=== PATIENT | female | born 2000 | race Two or more races ===

== ENCOUNTER 2022-01-06 12:39 | Emergency (ER) | payer OTHER ==
[~2022-01-06] VITALS: Ht 160 cm; Wt 45.5 kg
[2022-01-06] MEDS ORDERED: GABAPENTIN 300 MG CAPSULE PO ONE (15:00)
[2022-01-06] MEDS ORDERED: METHOCARBAMOL 500 MG TABLET PO ONE (15:00)
[2022-01-06] MEDS ORDERED: KETOROLAC TROMETHAMINE 30 MG/ML VIAL IM ONE (15:00)
[2022-01-06 15:58] VITALS: BP 107/61
[2022-01-06] MEDS ORDERED: NAPR-1025 PO (16:02)
[2022-01-06] MEDS ORDERED: GABA-1181 PO (16:02)
== END 2022-01-06 16:13 | disposition home or self-care (01) ==
LOC: EMS 12:39
DX: S39.012A Strain of muscle, fascia and tendon of lower back, initial encounter (principal); X58.XXXA Exposure to other specified factors, initial encounter; Y93.89 Activity, other specified; Y92.89 Other specified places as the place of occurrence of the external cause; Y99.8 Other external cause status
CPT/HCPCS: 81002; 81025; 96372; 99283; J1885

== ENCOUNTER 2022-01-18 18:27 | Emergency (ER) | payer OTHER ==
[~2022-01-18] VITALS: Ht 165.1 cm; Wt 47.0 kg
[~2022-01-18 18:27] MED LIST: GABA-1181 PO; NAPR-1025 PO
[2022-01-18 18:42] VITALS: BP 105/82
[2022-01-18 19:32] LABS: COVID AG,FIA SOURCE NASAL SWAB
== END 2022-01-18 20:22 | disposition home or self-care (01) ==
LOC: EMS 18:29
DX: U07.1 COVID-19 (principal)
CPT/HCPCS: 99283

== ENCOUNTER 2022-04-07 17:58 | Emergency (ER) | payer OTHER ==
[~2022-04-07] VITALS: Ht 162.6 cm; Wt 48.0 kg
[2022-04-07 18:34] VITALS: BP 112/53
[2022-04-07] MEDS ORDERED: LIDOCAINE 5% TRANSDERMAL PATCH TD ONE (22:15)
[2022-04-07] MEDS ORDERED: KETOROLAC TROMETHAMINE 30 MG/ML VIAL IM ONE (22:15)
[2022-04-07] MEDS ORDERED: ACETAMINOPHEN 500 MG TABLET PO ONE (22:15)
== END 2022-04-07 22:38 | disposition home or self-care (01) ==
LOC: EMS 18:03
DX: S13.4XXA Sprain of ligaments of cervical spine, initial encounter (principal); X58.XXXA Exposure to other specified factors, initial encounter; Y93.89 Activity, other specified; Y92.89 Other specified places as the place of occurrence of the external cause; Y99.8 Other external cause status
CPT/HCPCS: 99283; 96372; J1885

== ENCOUNTER 2022-04-15 12:06 | Emergency (ER) | payer OTHER ==
[~2022-04-15] VITALS: Ht 162.6 cm; Wt 58.2 kg
[2022-04-15] MEDS ORDERED: GELATIN SPONGE,ABSORBABLE 12-7 MM TP ONE (14:45)
[2022-04-15 14:52] VITALS: BP 120/73
== END 2022-04-15 15:51 | disposition home or self-care (01) ==
LOC: EMS 12:06
DX: S61.211A Laceration without foreign body of left index finger without damage to nail, initial encounter (principal); W27.8XXA Contact with other nonpowered hand tool, initial encounter; Y93.89 Activity, other specified; Y92.89 Other specified places as the place of occurrence of the external cause; Y99.8 Other external cause status
CPT/HCPCS: 99282; 99283

== ENCOUNTER 2023-06-24 02:41 | Emergency (ER) | payer OTHER ==
[~2023-06-24] VITALS: Ht 165.1 cm; Wt 46.8 kg
[2023-06-24 02:47] VITALS: TEMP 97.9
[2023-06-24 03:05] VITALS: BP 119/87; PULSE 103; RESP 17
[2023-06-24] MEDS ORDERED: IBUPROFEN 600 MG TABLET PO ONE (04:00)
[2023-06-24] MEDS ORDERED: IBUPROFEN 400 MG TABLET PO ONE (04:15)
== END 2023-06-24 04:18 | disposition home or self-care (01) ==
LOC: EMS 02:41
DX: S50.12XA Contusion of left forearm, initial encounter (principal); W18.39XA Other fall on same level, initial encounter; Y93.89 Activity, other specified; Y92.89 Other specified places as the place of occurrence of the external cause; Y99.8 Other external cause status
CPT/HCPCS: 99283

== ENCOUNTER 2024-06-13 02:10 | Emergency (ER) | payer OTHER ==
[~2024-06-13] VITALS: Ht 165.1 cm; Wt 50.0 kg
[2024-06-13 02:24] VITALS: TEMP 98.4
[2024-06-13] MEDS: FAMOTIDINE 20 MG/2 ML VIAL IVP ONE (03:07)
[2024-06-13] MEDS: SODIUM CHLORIDE 0.9% 1,000 ML IV ONE (03:07)
[2024-06-13] MEDS: ONDANSETRON HCL 4 MG/2 ML VIAL IVP ONE (03:07)
[2024-06-13 03:09] LABS: BASOPHILS % (AUTO) 0.4 % (0.0-2.0); EOSINOPHILS % (AUTO) 2.7 % (1.0-6.0); HEMATOCRIT 41.7 % (36-46); HEMOGLOBIN 14.4 g/dL (12.0-16.0); LYMPHOCYTES # (AUTO) 1.6 K/uL (1.0-4.8); LYMPHOCYTES % (AUTO) 21.3 % (22.0-44.0); MEAN CORPUSCULAR HEMOGLOBIN 31.2 pg (26.0-34.0); MEAN CORPUSCULAR HGB CONC 34.6 G/dL (31.0-37.0); MEAN CORPUSCULAR VOLUME 90 fL (80-100); MONOCYTES # (AUTO) 0.4 K/uL (0.1-1.0); MONOCYTES % (AUTO) 5.5 % (2.0-9.0); NEUTROPHILS # (AUTO) 5.4 K/uL (1.8-7.7); NEUTROPHILS % (AUTO) 70.1 % (40.0-70.0); PLATELET COUNT (AUTO) 388 K/uL (150-450); RED BLOOD CELL COUNT(AUTO) 4.62 MIL/uL (4.00-5.20); RED CELL DISTRIBUTION WIDTH 12.7 % (11.5-14.5); WHITE BLOOD COUNT (AUTO) 7.7 K/uL (4.5-11.0)
[2024-06-13 03:23] LABS: ANION GAP 13 mmol/L (8-16); CALCIUM, TOTAL 9.1 mg/dL (8.8-10.5); CARBON DIOXIDE 24 mmol/L (22-29); CHLORIDE 102 mmol/L (98-107); CREATININE 0.59 mg/dL (0.60-1.30); GLOMERULAR FILTR. RATE CALC > 60 mL/min (>60); GLUCOSE,RANDOM 110 mg/dL (70-110); POTASSIUM 3.3 mmol/L (3.5-5.1); SODIUM SERUM 139 mmol/L (136-145); UREA NITROGEN, BLOOD 17 mg/dL (7-18)
[2024-06-13 03:24] LABS: PROTHROMBIN TIME 10.8 SEC (9.4-11.6)
[2024-06-13 03:26] LABS: IRON, SERUM 393 mcg/dL (50-175)
[2024-06-13 03:29] LABS: ALANINE AMINOTRANSFERASE 14 U/L (12-78); ALBUMIN 4.3 g/dL (3.4-5.0); ALKALINE PHOSPHATASE 52 U/L (46-116); ASPARTATE AMINOTRANSFERASE 10 U/L (15-37); BILIRUBIN,TOTAL 0.8 mg/dL (0.1-1.0); TOTAL PROTEIN, SERUM 7.8 g/dL (6.4-8.2)
[2024-06-13 03:33] LABS: TROPONIN I-HIGH SENSITIVITY Less Than 4 ng/L (<51)
[2024-06-13 03:34] LABS: ACETAMINOPHEN < 2 mcg/mL (10-30)
[2024-06-13 03:35] LABS: LACTIC ACID 0.9 mmol/L (0.4-2.0)
[2024-06-13 04:05] VITALS: BP 117/81; PULSE 92; RESP 18; O2SAT 100
== END 2024-06-13 04:45 | disposition left against medical advice (07) ==
LOC: EMS 02:10
DX: T45.4X1A Poisoning by iron and its compounds, accidental (unintentional), initial encounter (principal); R11.0 Nausea; Y92.89 Other specified places as the place of occurrence of the external cause
CPT/HCPCS: 99284; 96374; 96361; 96375; 80053; 83540; 83605; 84484; 84703; 85025; 85610; 85730; 36415; 93005; G0480; J3490; J2405; J7030; G0481